=== PATIENT | female | born 1960 | race Caucasian/White ===

== ENCOUNTER 2018-01-30 11:56 | Outpatient (REF) | payer OTHER, SELFPAY | END 2018-01-30 12:16 | LOC: LBN 11:56 | PROVIDERS: PCP General Practice; Visit Provider General Practice | DX: J02.9 Acute pharyngitis, unspecified (principal) | CPT/HCPCS: 87081 ==

== ENCOUNTER → 2018-10-18 09:12 | Outpatient (BNVA) | payer OTHER, SELFPAY | PROVIDERS: PCP General Practice; Visit Provider Psychiatry & Neurology Neurology | DX: G35 Multiple sclerosis (principal) | CPT/HCPCS: 99214 ==

== ENCOUNTER 2018-10-19 15:34 | Outpatient (CLI) | payer OTHER, SELFPAY ==
[2018-10-19 16:21] LABS: Abs Immature Grans 0.02 k/cumm (0.0-0.09); Absolute Eosinophil Count 0.06 k/cumm (0.0-0.7); Absolute Lymphocyte Count 0.54 k/cumm (1.2-3.4); Absolute Monocyte Count 0.38 k/cumm (0.11-0.7); Absolute Neutrophil Count 2.27 k/cumm (1.2-6.7); Eosinophils % 1.8; HCT 39.1 % (36.0-46.0); HGB 12.9 g/dL (12.0-15.5); Immature Grans % 0.6; Lymphocytes % 16.5; Mean Corpuscular Hemoglobin 33.9 pg (27.0-33.0); Mean Corpuscular Volume 102.6 fL (80-95); Mean Platelet Volume 9.9 fL (8.0-11.0); Monocytes % 11.6; Neutrophils % 69.5; Platelet Count 266 x1000/uL (130-400); RBC 3.81 m/cumm (4.00-5.20); White Blood Cell Count 3.27 k/cumm (4.4-10.8)
[2018-10-22 08:08] LABS: Vitamin D 25 Total 51.6 ng/ml (30-100)
[2018-10-24 22:04] LABS: JC Virus DNA, QN <500 copies/mL; Source PLASMA
== END 2018-10-19 15:54 ==
PROVIDERS: PCP General Practice; Visit Provider Psychiatry & Neurology Neurology
DX: G35 Multiple sclerosis (principal)
CPT/HCPCS: 36415; 82306; 87799; 85025

== ENCOUNTER 2019-01-25 14:34 | Outpatient (REF) | payer OTHER, SELFPAY ==
--- NOTE | 2019-01-25 13:50 | PAPFT_PTH ---
PATIENT: Violette Lau LOC: [facility] U#:[id number] AGE/SX: 58/F ROOM: RE01/25/[address]: FLY Weathers : 1960 BED: DIS: 01/25/2019 SPEC #: [id number] RECD: 01/25/19 18:00 STATUS: LLUVIAAtif [place] #: [id number] NANI: 01/25/19 13:[address]: Marva Ding DEPT: [facility] Cytology RECD BY: Tina Rader ENTERED: 01/25/19 18:01 SP TYPE: PAPFT OTHR DR: Mario Gilliam Tissues: 1 - CX/ENDOCX FOR PAP SMEARS Procedures: PAP THIN PREP/UVM Screening HPV DNA PROBE Comments: [id number]
== END 2019-01-25 14:54 ==
LOC: LBN 14:34
PROVIDERS: PCP General Practice; Visit Provider Nurse Practitioner Family
DX: Z12.4 Encounter for screening for malignant neoplasm of cervix (principal); Z11.51 Encounter for screening for human papillomavirus (HPV); R87.612 Low grade squamous intraepithelial lesion on cytologic smear of cervix (LGSIL)
CPT/HCPCS: 88142; 87624

== ENCOUNTER 2019-02-18 16:08 | Outpatient (REF) | payer OTHER, SELFPAY ==
--- NOTE | 2019-02-18 15:55 | ENDO_PTH ---
PATIENT: Violette Lau LOC: [facility] U#:[id number] AGE/SX: 58/F ROOM: RE02/18/[address]: Abdiaziz Ruiz MD : 1960 BED: DIS: 02/18/2019 SPEC #: [id number] RECD: 02/18/19 17:49 STATUS: LUISITO REQ #: [id number] NANI: 02/18/19 15:[address]: Abdiaziz Ruiz DEPT: Surgical Specimen RECD BY: Tina Rader ENTERED: 02/18/19 17:50 SP TYPE: Endo OTHR DR: Mario Gilliam Tissues: 1 - ENDOCERVICAL BX/CURRETTE Procedures: GROSS AND MICRO LEVEL 4 Comments: [id number] (CREDITED PER [facility] - DIDN'T SURVIVE PROCESSING)
== END 2019-02-18 16:28 ==
LOC: LBN 16:08
PROVIDERS: PCP General Practice; Visit Provider Obstetrics & Gynecology
DX: R87.612 Low grade squamous intraepithelial lesion on cytologic smear of cervix (LGSIL) (principal); R87.810 Cervical high risk human papillomavirus (HPV) DNA test positive
CPT/HCPCS: 88305

== ENCOUNTER 2019-03-19 01:46 | Outpatient (CLI) | payer OTHER, SELFPAY ==
--- NOTE | 2019-03-19 08:48 | DI.MAMMO_ITS ---
EXAM: MG MAMMO SCREENING CLINICAL HISTORY: Screening. Z12.39 TECHNIQUE: Bilateral full field digital CC and MLO mammographic images were obtained with 3D tomosyn thesis and utilizing computer aided detection (CAD). COMPARISON: Available for comparison. FINDINGS: Masses/Architectural Distortion: None seen. Microcalcifications: No suspicious pleomorphic-type are seen. Skin Thickening/Nipple Retraction: None. IMPRESSION: 1. No significant interval change with no specific features of malignancy noted. 2. Unless there is more urgent need, screening mammography is recommended, as per [employer] guidelines. ACR BI-RAD Category- 1 Negative Breast Density - Category C - Heterogeneously dense The mammogram demonstrates the patient's breast tissue is dense. Dense breast tissue is very common a nd is not abnormal but dense breast tissue can make it harder to find cancer on a mammogram. Also, de nse breast tissue may increase their breast cancer risk. This information about the result of the [facility] mogram report was provided to the patient to raise their awareness. Use this report when you speak wi th the patient about their risks for breast cancer, which includes their family history. At that time , you may recommend for more screening tests (Ultrasound or MRI) as they might be useful based on the ir risk. A negative radiographic report should not delay biopsy if a dominant or clinically suspicious mass is present. Up to ten percent of cancers are not identified on mammography. A negative report may reinforce clinical impression. Adenosis and dense breasts may obscure an underlying neoplasm. False positive reports average 6 to 10%.
== END 2019-03-19 02:06 ==
PROVIDERS: PCP General Practice; Visit Provider Nurse Practitioner Family
DX: Z12.31 Encounter for screening mammogram for malignant neoplasm of breast (principal)
CPT/HCPCS: 77063; 77067

== ENCOUNTER → 2019-10-17 09:39 | Outpatient (BNVA) | payer OTHER, SELFPAY | PROVIDERS: PCP General Practice; Visit Provider Psychiatry & Neurology Neurology | DX: G35 Multiple sclerosis (principal); I10 Essential (primary) hypertension | CPT/HCPCS: 99214 ==

== ENCOUNTER 2020-03-02 16:18 | Outpatient (REF) | payer OTHER, SELFPAY ==
--- NOTE | 2020-03-02 16:00 | PAPFT_PTH ---
PATIENT: Violette Lau LOC: [facility] U#:[id number] AGE/SX: 59/F ROOM: RE03/02/[address]: FLY Weathers : 1960 BED: DIS: 03/02/2020 SPEC #: [id number] RECD: 03/02/20 18:38 STATUS: LUISITO REQ #: [id number] NANI: 03/02/20 16:[address]: Marva Ding DEPT: [facility] Cytology RECD BY: Tina Rader ENTERED: 03/02/20 18:38 SP TYPE: PAPFT OTHR DR: Yuri Bower Tissues: 1 - CX/ENDOCX FOR PAP SMEARS Procedures: PAP THIN PREP/UVM Screening HPV DNA PROBE Comments: [id number]
== END 2020-03-02 16:38 ==
LOC: LBN 16:18
PROVIDERS: PCP Family Medicine; Visit Provider Nurse Practitioner Family
DX: Z12.4 Encounter for screening for malignant neoplasm of cervix (principal); Z87.42 Personal history of other diseases of the female genital tract
CPT/HCPCS: 88142; 87624

== ENCOUNTER 2020-03-23 02:16 | Outpatient (CLI) | payer OTHER, SELFPAY ==
--- NOTE | 2020-03-23 16:00 | DI.MAMMO_ITS ---
EXAM: MG MAMMO SCREENING CLINICAL HISTORY: screening TECHNIQUE: Bilateral full field digital CC and MLO mammographic images were obtained with 3D tomosyn thesis and utilizing computer aided detection (CAD). COMPARISON: Available for comparison. FINDINGS: Masses/Architectural Distortion: None seen. Microcalcifications: No suspicious pleomorphic-type are seen. Skin Thickening/Nipple Retraction: None. IMPRESSION: 1. No significant interval change with no specific features of malignancy noted. 2. Unless there is more urgent need, screening mammography is recommended, as per [employer] guidelines. BI-RADS Category 1 - Negative Breast Density - Category C - Heterogeneously dense The mammogram demonstrates the patient's breast tissue is dense. Dense breast tissue is very common a nd is not abnormal but dense breast tissue can make it harder to find cancer on a mammogram. Also, de nse breast tissue may increase their breast cancer risk. This information about the result of the [facility] mogram report was provided to the patient to raise their awareness. Use this report when you speak wi th the patient about their risks for breast cancer, which includes their family history. At that time , you may recommend for more screening tests (Ultrasound or MRI) as they might be useful based on the ir risk. A negative radiographic report should not delay biopsy if a dominant or clinically suspicious mass is present. Up to ten percent of cancers are not identified on mammography. A negative report may reinforce clinical impression. Adenosis and dense breasts may obscure an underlying neoplasm. False positive reports average 6 to 10%. Patient will receive a letter notifying them of these results.
== END 2020-03-23 02:36 ==
PROVIDERS: PCP Family Medicine; Visit Provider Nurse Practitioner Family
DX: Z12.31 Encounter for screening mammogram for malignant neoplasm of breast (principal)
CPT/HCPCS: 77063; 77067

== ENCOUNTER 2020-09-07 02:08 | Outpatient (CLI) | payer OTHER, SELFPAY ==
--- NOTE | 2020-09-07 15:20 | DI.MRI_ITS ---
EXAM: MR BRAIN WO CLINICAL HISTORY: stable clinically,multiple sclerosis, relapsing remitting, g35 TECHNIQUE: Multiplanar multisequence MRI of the brain was performed. FINDINGS: CEREBRAL PARENCHYMA: There is no evidence of intracranial hemorrhage, mass effect, or shift of midline structures. There are no extra-axial fluid collections. Ventricles are not enlarged or shifted. There is a tiny focus of increased signal in the lateral aspect of the left cerebellar hemisphere geno suring 2-3 millimeters seen on the FLAIR image sequence. This may represent artifact. No abnormal s ignal on diffusion imaging at this level. Small area of signal abnormality in the medial right periventricular white matter is unchanged from 2 015. There is no significant focal signal abnormality evident on diffusion imaging to suggest acute ischem ic event. PITUITARY GLAND: No mass nor parasellar abnormality. No obvious abnormality in the cavernous sinuses. FLOW VOIDS: The expected flow void are noted. No evidence of obvious aneurysm nor obvious vascular ma lformation. PARANASAL SINUSES: The visualized paranasal sinuses appear unremarkable. No obvious finding ORBITS: No obvious findings. IMPRESSION: Compared to the prior MRI scan of December 2014 there is stable appearance of a small area of periventr icular signal abnormality on the right side consistent with prior ischemic small vessel disease. The re is no evidence of intracranial hemorrhage. There is a single focus of increased new signal seen in the far left side of the left cerebellar mina sphere seen on the FLAIR sequence, not evident on the 2015 study. There is slight possibly this may represent artifact. Recommend follow-up MRI in 6 months. DATA REPOSITORY:
== END 2020-09-07 02:28 ==
PROVIDERS: PCP Family Medicine; Visit Provider Psychiatry & Neurology Neurology
DX: G35 Multiple sclerosis (principal)
CPT/HCPCS: 70551

== ENCOUNTER 2020-09-07 03:23 | Outpatient (CLI) | payer OTHER, SELFPAY ==
[2020-09-07 14:53] LABS: Abs Immature Grans 0.02 10^3/uL (0.0-0.06); Absolute Basophil Count 0.03 10^3/uL (0.0-0.2); Absolute Eosinophil Count 0.22 10^3/uL (0.0-0.7); Absolute Lymphocyte Count 1.43 10^3/uL (1.2-3.4); Absolute Monocyte Count 0.43 10^3/uL (0.1-0.8); Absolute Neutrophil Count 3.37 10^3/uL (1.2-6.7); Basophils % 0.5; HGB 12.6 g/dL (11.2-15.7); Immature Grans % 0.4; MCH 33.4 pg (27.0-33.0); MCHC 33.2 % (32.0-36.0); MCV 100.8 fL (80-95); MPV 9.7 fL (8.0-11.0); Monocytes % 7.8; Neutrophils % 61.3; Nucleated RBC 0 %; Platelet Count 279 10^3/uL (130-400); RBC 3.77 10^6/uL (3.93-5.22); RDW 12.3 % (11.7-14.6); RDW-SD 46.2 fL
[2020-09-07 16:31] LABS: Calculated LDL 107 mg/dL (<100); Cholesterol 251 mg/dL (<200); HDL Cholesterol 69 mg/dL (40-60); Triglyceride 378 mg/dL (<150)
== END 2020-09-07 03:24 | disposition home or self-care (01) ==
LOC: LBO 03:23
PROVIDERS: PCP Family Medicine; Visit Provider Psychiatry & Neurology Neurology
DX: G35 Multiple sclerosis (principal)
CPT/HCPCS: 36415; 80061; 85025

== ENCOUNTER → 2020-09-15 13:15 | Outpatient (BNVA) | payer OTHER, SELFPAY | PROVIDERS: PCP Family Medicine; Referring Provider General Practice; Visit Provider Psychiatry & Neurology Neurology | DX: G35 Multiple sclerosis (principal); G62.9 Polyneuropathy, unspecified; Z79.899 Other long term (current) drug therapy | CPT/HCPCS: 99214 ==

== ENCOUNTER 2020-09-21 02:30 | Outpatient (CLI) | payer OTHER, SELFPAY ==
[2020-09-21 12:51] LABS: Folate 19.4 ng/mL (8.6-20.0); Vitamin B12 670 pg/mL (193-986)
== END 2020-09-21 02:31 | disposition home or self-care (01) ==
LOC: LBO 02:30
PROVIDERS: PCP Family Medicine; Visit Provider Psychiatry & Neurology Neurology
DX: G62.9 Polyneuropathy, unspecified (principal)
CPT/HCPCS: 36415; 82607; 82746

== ENCOUNTER 2021-04-08 09:42 | Outpatient (REF) | payer OTHER, SELFPAY ==
--- NOTE | 2021-04-08 09:30 | PAPFT_PTH ---
PATIENT: Violette Lau LOC: [facility] U#:[id number] AGE/SX: 60/F ROOM: RE04/08/[address]: FLY Weathers : 1960 BED: DIS: 04/08/2021 SPEC #: [id number] RECD: 04/08/21 12:39 STATUS: LUISITO REQ #: [id number] NANI: 04/08/21 09:[address]: Marva Ding DEPT: [facility] Cytology RECD BY: Tina Rader ENTERED: 04/08/21 12:39 SP TYPE: PAPFT OTHR DR: Yuri Bower Tissues: 1 - CX/ENDOCX FOR PAP SMEARS Procedures: PAP THIN PREP/UVM Screening HPV DNA PROBE Comments: [id number]
== END 2021-04-08 09:43 | disposition home or self-care (01) ==
LOC: LBN 09:42
PROVIDERS: PCP Family Medicine; Visit Provider Nurse Practitioner Family
DX: Z12.4 Encounter for screening for malignant neoplasm of cervix (principal); Z11.51 Encounter for screening for human papillomavirus (HPV)
CPT/HCPCS: 88142; 87624

== ENCOUNTER 2021-04-28 01:10 | Outpatient (CLI) | payer OTHER, SELFPAY ==
--- NOTE | 2021-04-28 07:45 | DI.MAMMO_ITS ---
Exam(s) MAMMO SCREENING EXAM: MAMMO SCREENING CLINICAL HISTORY: screening,Z12.39 TECHNIQUE: Bilateral full field digital CC and MLO mammographic images were obtained with 3D tomosyn thesis and utilizing computer aided detection (CAD). COMPARISON: Available for comparison. FINDINGS: Masses/Architectural Distortion: None seen. Microcalcifications: No suspicious pleomorphic-type are seen. Skin Thickening/Nipple Retraction: None. IMPRESSION: 1. No significant interval change with no specific features of malignancy noted. 2. Unless there is more urgent need, screening mammography is recommended, as per [employer] guidelines. BI-RADS Category 1 - Negative Breast Density - Category B - Scattered areas of fibroglandular density Breast density category C or D implies that the patient has dense breast tissue. Dense breast tissue is very common and is not abnormal but dense breast tissue can make it harder to find cancer on a ma mmogram. Also, dense breast tissue may increase their breast cancer risk. This information about the result of the mammogram report was provided to the patient to raise their awareness. Use this report when you speak with the patient about their risks for breast cancer, which includes their family hist ory. At that time, you may recommend for more screening tests (Ultrasound or MRI) as they might be us eful based on their risk. A negative radiographic report should not delay biopsy if a dominant or clinically suspicious mass is present. Up to ten percent of cancers are not identified on mammography. A negative report may reinforce clinical impression. Adenosis and dense breasts may obscure an underlying neoplasm. False positive reports average 6 to 10%. Patient will receive a letter notifying them of these results.
== END 2021-04-28 01:30 ==
PROVIDERS: PCP Family Medicine; Visit Provider Nurse Practitioner Family
DX: Z12.31 Encounter for screening mammogram for malignant neoplasm of breast (principal)
CPT/HCPCS: 77063; 77067

== ENCOUNTER → 2021-08-27 01:03 | Outpatient (CLI) | payer OTHER, SELFPAY ==
--- NOTE | 2021-08-27 06:30 | DI.MRI_ITS ---
Exam(s) MR BRAIN WO EXAM: MR BRAIN WO CLINICAL HISTORY: MS; clinically stable,g35 TECHNIQUE: Multiplanar multisequence MRI of the brain was performed. COMPARISON: MR MR BRAIN WO from 09/07/2020 FINDINGS: CEREBRAL PARENCHYMA: There is no evidence of intracranial hemorrhage, new mass effect, or shift of midline structures. Th ere are no extra-axial fluid collections. Ventricles are not enlarged or shifted. There is no significant focal signal abnormality in the cerebellar hemispheres nor within the kelsi, m idbrain, and thalami. There is no abnormal signal abnormality in the periventricular white matter. Previously described sm all focus of signal abnormality in the immediate right periventricular white matter remains unchanged . There are few tiny 2 millimeter foci of white signal abnormality which remain unchanged There is no significant focal signal abnormality evident on diffusion imaging to suggest acute ischem ic event. PITUITARY GLAND: No mass nor parasellar abnormality. No obvious abnormality in the cavernous sinuses. FLOW VOIDS: The expected flow void are noted. No evidence of obvious aneurysm nor obvious vascular ma lformation. PARANASAL SINUSES: Mild mucosal thickening in the maxillary sinuses unchanged. Also in the ethmoidal air cells. Sphenoid sinuses are clear as are frontal sinuses. Mastoid air cells remain clear. ORBITS: No obvious findings. IMPRESSION: No significant new intracranial findings on this noninfused MRI scan of the brain. Findings as above, unchanged from prior MRI scan of 09/07/2020. DATA REPOSITORY:
== END ==
PROVIDERS: PCP Family Medicine; Visit Provider Psychiatry & Neurology Neurology
DX: G35 Multiple sclerosis (principal)
CPT/HCPCS: 70551

== ENCOUNTER 2022-05-30 02:52 | Outpatient (CLI) | payer OTHER, SELFPAY ==
--- NOTE | 2022-05-30 15:45 | DI.MAMMO_ITS ---
Exam(s) MAMMO SCREENING EXAM: MAMMO SCREENING CLINICAL HISTORY: screening TECHNIQUE: Mammograms were interpreted according to the usual protocol including computer analysis w [employer] CAD system, tomosynthesis and C-view imaging. COMPARISON: 2013 through 2020 FINDINGS: The breasts are composed of scattered fibroglandular densities, Breast Density category B. No suspicious masses or suspicious microcalcifications are seen. No skin thickening or abnormal axillary lymph nodes are seen. There has been no significant change from prior exams. IMPRESSION: BI-RADS Category 1, Negative mammogram Yearly screening mammography is recommended. Breast Density - Category B, scattered fibroglandular densities. A negative radiographic report should not delay biopsy if a dominant or clinically suspicious mass is present. Up to ten percent of cancers are not identified on mammography. A negative report may reinforce clinical impression. Adenosis and dense breasts may obscure an underlying neoplasm. False positive reports average 6 to 10%. Patient will receive a letter notifying them of these results.
== END 2022-05-30 03:12 ==
LOC: DI 02:52
PROVIDERS: PCP Family Medicine; Visit Provider Obstetrics & Gynecology
DX: Z12.31 Encounter for screening mammogram for malignant neoplasm of breast (principal)
CPT/HCPCS: 77063; 77067